=== PATIENT | female | born 1970 | race Hispanic/Latino ===

== ENCOUNTER 2018-01-15 11:09 | Emergency (ER) | payer SELFPAY ==
[~2018-01-15] VITALS: Ht 165.1 cm; Wt 72.7 kg
[2018-01-15] MEDS ORDERED: AUGMENTIN875TAB PO (12:12)
[2018-01-15] MEDS ORDERED: PEPCID AC20 MG PO (12:40)
[2018-01-15] MEDS ORDERED: BENADRYL 50MG C50 MG PO (12:40)
[2018-01-15] MEDS ORDERED: MEDDOSEPAK PO (12:40)
[2018-01-15] MEDS ORDERED: EPIPEN 2-P0.3 MG/0.3 SC (12:40)
[2018-01-15 12:58] VITALS: BP 140/74
== END 2018-01-15 12:58 | disposition home or self-care (01) | DRG 607 ==
LOC: ED 11:09
DX: L50.0 Allergic urticaria (principal); R22.0 Localized swelling, mass and lump, head